=== PATIENT | male | born 1995 ===

== ENCOUNTER 2018-04-23 09:57 | Outpatient (CLI) | payer OTHER ==
[~2018-04-23] VITALS: Ht 193 cm; Wt 81.6 kg
[2018-04-23] MEDS ORDERED: FLONASE16 GM NASAL (13:56)
== END 2018-04-23 10:15 | disposition home or self-care (01) ==
LOC: OFIC 805 09:57
DX: J31.0 Chronic rhinitis (principal); H61.21 Impacted cerumen, right ear; H69.83 Other specified disorders of Eustachian tube, bilateral

== ENCOUNTER 2018-06-20 08:54 | Outpatient (CLI) | payer OTHER ==
[~2018-06-20] VITALS: Ht 182.9 cm; Wt 81.6 kg
[~2018-06-20 08:54] MED LIST: FLONASE16 GM NASAL
== END 2018-06-20 09:15 | disposition home or self-care (01) ==
LOC: OFIC 805 08:54
DX: J31.0 Chronic rhinitis (principal); H93.13 Tinnitus, bilateral; H69.90 Unspecified Eustachian tube disorder, unspecified ear; M26.69 Other specified disorders of temporomandibular joint